=== PATIENT | male | born 1975 | race Caucasian/White ===

== ENCOUNTER 2017-01-01 12:14 | Inpatient (IN) | payer OTHER ==
[~2017-01-01] VITALS: Ht 167.6 cm; Wt 102.1 kg
--- NOTE | 2017-01-01 12:14 | NUR ---
Patient to ER bed 2 to gown for evaluation. Side rails up. Report given to Nghia OSBORN. Brought in by [facility]
--- NOTE | 2017-01-01 12:15 | NUR ---
LALIT Estrada at bedside examining patient.
[2017-01-01 12:24] VITALS: BP 129/79; PULSE 103; RESP 24; TEMP 97.9; O2SAT 98
--- NOTE | 2017-01-01 12:34 | NUR ---
Pt was brought in by [facility] for chest pain since 1130 this morning, pt states pain radiated to left arm and leg with numbness. Pt was given aspirin and nitro in route to the ER, states relieved pain. Pt denies SOB or n/v. Pt is able to communicate in full sentences. No other injuries/complaints per pt or noted.
[2017-01-01 13:08] LABS: BASOPHILS % (AUTO) 0.6 % (0.0-2.0); EOSINOPHILS # (AUTO) 0.1 K/uL (0.0-0.4); EOSINOPHILS % (AUTO) 2.2 % (0.0-4.0); HEMATOCRIT 46.6 % (36-54); HEMOGLOBIN 15.3 g/dL (14.0-18.0); LYMPHOCYTES # (AUTO) 2.3 K/uL (1.0-5.5); LYMPHOCYTES % (AUTO) 37.2 % (20.5-51.5); MEAN CORPUSCULAR HEMOGLOBIN 28 pg (27-31); MEAN CORPUSCULAR HGB CONC 33 % (32-36); MEAN CORPUSCULAR VOLUME 86 fL (79.0-98.0); MONOCYTES # (AUTO) 0.5 K/uL (0.0-1.0); MONOCYTES % (AUTO) 7.8 % (1.7-9.3); NEUTROPHILS # (AUTO) 3.3 K/uL (1.8-7.7); NEUTROPHILS % (AUTO) 52.2 % (40.0-70.0); PLATELET COUNT (AUTO) 161 K/uL (130-430); RED BLOOD CELL COUNT(AUTO) 5.43 MIL/uL (4.2-6.2); WHITE BLOOD COUNT (AUTO) 6.2 K/uL (4.8-10.8)
[2017-01-01 13:20] LABS: CALCIUM 9.2 mg/dL (8.4-11.0); CREATININE 0.98 mg/dL (0.55-1.30); POTASSIUM 3.3 mmol/L (3.5-5.1)
--- NOTE | 2017-01-01 13:21 | NUR ---
Pt resting comfortably, will continue to monitor
[2017-01-01 13:25] LABS: ALBUMIN 3.6 g/dL (3.4-4.8); TOTAL BILIRUBIN 0.5 mg/dL (0.0-1.0)
--- NOTE | 2017-01-01 13:30 | NUR ---
Pt went to radiology in stable condition.
--- NOTE | 2017-01-01 13:40 | NUR ---
Pt returned from radiology in stable condition.
[2017-01-01 13:45] LABS: BILIRUBIN,URINE NEGATIVE (NEGATIVE); BLOOD, URINE NEGATIVE (NEGATIVE); CLARITY/URINE CLEAR (CLEAR); COLOR,URINE YELLOW (YELLOW); GLUCOSE,URINE NEGATIVE (NEGATIVE); KETONES,URINE NEGATIVE (NEGATIVE); LEUKOCYTE ESTERASE ,URINE NEGATIVE (NEGATIVE); NITRITE, URINE NEGATIVE (NEGATIVE); PH,URINE 7.5 (5.0-8.0); PROTEIN URINE NEGATIVE (NEGATIVE); UROBILINOGEN,URINE 0.2 (0.2-1.0)
[2017-01-01] MEDS ORDERED: MORPHINE 4 MG/ML INJ. SYRINGE IVP ONE ×2 (14:00→16:00)
[2017-01-01] MEDS ORDERED: NACL 0.9% 1,000 ML IV ONE (14:00)
[2017-01-01] MEDS ORDERED: NITROGLYCERIN 0.4 MG TAB.SUBL SL ONE (14:30)
--- NOTE | 2017-01-01 14:36 | NUR ---
Medications were given, pt tolerated well. No adverse reaction, will continue to monitor.
[2017-01-01] MEDS ORDERED: PROPOFOL DRIP 100 ML IV ONE (15:43)
--- NOTE | 2017-01-01 15:43 | NUR ---
Pt resting comfortably in bed, will continue to monitor.
[2017-01-01] MEDS ORDERED: LORA10TA7 PO (16:20)
[2017-01-01] MEDS ORDERED: LOSA1TAB9 PO (16:20)
[2017-01-01] MEDS ORDERED: AMLO10TA88 PO (16:20)
--- NOTE | 2017-01-01 16:30 | NUR ---
Patient will be admitted to care of Dr. Velez. Admitted to Telemetry unit. Will go to room 117B. Belongings list completed. Summary report printed. Report will be given at bedside.
--- NOTE | 2017-01-01 16:42 | NUR ---
ADMISSION NOTE Received patient from ER via gurney. Patient admitted with diagnosis of CHESTPAIN. Patient is awake, alert, oriented X 3. Patient oriented to hospital room, call light, toileting, pain management and safety-teach back done. Patient informed that Yumiko will be her nurse and that their room number is 117B. Personal belongings checked and Belongings List documented. Call light within reach.
[2017-01-01 17:05] VITALS: BP 115/70; PULSE 72; RESP 18; TEMP 97.2
[2017-01-01] MEDS ORDERED: ONDANSETRON HCL 4 MG/2 ML VIAL IVP PRN (18:00)
[2017-01-01] MEDS ORDERED: TEMAZEPAM 15 MG CAPSULE PO PRN (18:00)
[2017-01-01] MEDS ORDERED: POTASSIUM CHLORIDE 20 MEQ TAB.PRT.SR PO ONE (18:00)
--- NOTE | 2017-01-01 18:39 | NUR ---
CLOSING NOTE PT SITTING UP IN BED IN NO ACUTE DISTRESS. DENIES ANY CHEST PAIN AT THIS TIME. DISCUSSED WITH PT PLAN FOR NPO STATUS AFTER MN FOR LEXISCAN SCHEDULED FOR 1300 TOMORROW. ALSO DISCUSSED WITH PT PLAN FOR MORE BLOOD WORK AND EKG'S. PT VERBALIZED UNDERSTANDING. NSR SHOWING ON THE MONITOR. SAFETY MEASURES IN PLACE WITH CALL LIGHT WITHIN REACH. PT ENCOURAGED TO USE CALL LIGHT FOR ASSISTANCE. VERBALIZED UNDERSTANDING. WILL ENDORSE TO NEXT SHIFT.
[2017-01-01 20:10] VITALS: BP 109/66; PULSE 92; RESP 20; TEMP 97; O2SAT 94
--- NOTE | 2017-01-01 20:10 | NUR ---
Opening notes. Received patient in bed,family member at bed side, report from morning nurse; alert/oriented,breathing spontaneously, in RA, continent b/b,ambulatory,Hl to Lt arm patent/intact, denies any pain at this time;call light in reach, bed in low position,bed alarm on.
--- NOTE | 2017-01-01 22:00 | NUR ---
Round. resting in bed at this time, with no distress,instructed that he will not eat any thing by mouth after mid night,in preparation for tomorrow test,verbalized understanding.
[2017-01-02] VITALS (7 sets, daily range): BP systolic 98–133; BP diastolic 57–86; PULSE 74–89; RESP 16–18; TEMP 96.8–98.2; O2SAT 94–99
[2017-01-02 06:41] LABS: ANION GAP 7 (5-15); CALCIUM 8.6 mg/dL (8.4-11.0); CHLORIDE 107 mmol/L (98-107); CREATININE 0.94 mg/dL (0.55-1.30); GLUCOSE 94 mg/dL (70-99); POTASSIUM 3.6 mmol/L (3.5-5.1); SODIUM SERUM 144 mmol/L (136-145); UREA NITROGEN, BLOOD 19 mg/dL (8-21)
--- NOTE | 2017-01-02 06:47 | NUR ---
Closing notes. Condition stable, slept all night, no c/o pain during the shift, npo status maintained as ordered,now, in bed sleeping, with call light in reach, bed in low position, bed alarm on.
[2017-01-02 06:57] LABS: THYROID STIMULATING HORMONE 4.37 uIu/mL (0.36-3.74)
[2017-01-02 06:58] LABS: GFR AFRICAN AMERICAN 113 mL/min (>90)
[2017-01-02 07:11] LABS: CHOLESTEROL 173 mg/dL (<200); HDL CHOLESTEROL 52 mg/dL (>45); LDL CHOLESTEROL 117 mg/dL (<100); TRIGLYCERIDES 116 mg/dL (30-150)
--- NOTE | 2017-01-02 07:35 | NUR ---
Opening Note Patient sitting up in bed watching TV. No chest pain noted, but complained of some pain in the left shoulder. Consent was signed for lexiscan, patient verbalized understanding of procedure. Call light in reach and extension written on whiteboard for any needs.
--- NOTE | 2017-01-02 10:42 | NUR ---
[facility] for [facility]. Transfered via wheelchair.
--- NOTE | 2017-01-02 12:08 | NUR ---
Call from [facility]. [employer] Magalys asked for the patients condition today, pertinent labs.
[2017-01-02] MEDS ORDERED: REGADENOSON 0.4 MG/5 ML SYRINGE IVP ONE (13:00)
--- NOTE | 2017-01-02 14:00 | NUR ---
Patient back form part 1 of stress text. Lunch provided. Call light in reach.
--- NOTE | 2017-01-02 14:46 | NUR ---
Patient out to nuclear med imaging with Angela.
--- NOTE | 2017-01-02 15:43 | NUR ---
ATTENDING MD DR BENAVIDES WAS CALLED, RE: STRESS TEST RESULTS. SPOKE TO ROBERT
[2017-01-02] MEDS ORDERED: ASPI81TA2 PO (15:47)
[2017-01-02] MEDS ORDERED: ACET-2165 PO (15:48)
--- NOTE | 2017-01-02 16:30 | NUR ---
D/C Patient Patient given medication reconciliation form and D/C instructions. Exit Care provided. Patient verbalized understanding. MD discussed with patient the results and treatment provided. Ambulatory with steady gait for discharge to home. Patient in stable condition, ID band removed. IV catheter removed, intact and dressing applied, no active bleeding. Rx of Tylenol and asprin given. Patient educated on pain management. All belongings sent with patient.
== END 2017-01-02 16:30 | disposition home or self-care (01) | DRG 313 ==
LOC: SED 12:14 → STU 16:13
PROVIDERS: ADMIT Internal Medicine; ATTEND Internal Medicine
PROC: 4A02XM4 Measurement of Cardiac Total Activity, External Approach (ICD-10-PCS; principal; 2016-12-03)
DX: R07.89 Other chest pain (principal); I10 Essential (primary) hypertension; E87.6 Hypokalemia; K21.9 Gastro-esophageal reflux disease without esophagitis; E66.9 Obesity, unspecified; Z68.36 Body mass index [BMI] 36.0-36.9, adult; Z79.899 Other long term (current) drug therapy; Z82.49 Family history of ischemic heart disease and other diseases of the circulatory system
CPT/HCPCS: 36415; 71010; 80048; 80053; 80061; 81003; 83735-TC; 83880; 84443-TC; 84484; 85025; 85379; 93005; 93017; 96361; 96374; 99285; A9500; J2270; J2704; J2785; J7030